=== PATIENT | female | born 1985 | race African-American/Black ===

== ENCOUNTER 2018-01-11 22:35 | Emergency (ER) | payer BC, SELFPAY ==
[2018-01-11 23:20] LABS: #Basophils 0.1 thou/uL (0.0-0.2); #Eosinphils 0.1 thou/uL (0.0-0.7); #Lymphocytes 3.7 thou/uL (1.20-3.40); #Monocytes 0.7 thou/uL (0.11-0.59); #Neutrophils 5.8 thou/uL (1.40-6.50); %Basophils 0.7 % (0.0-1.0); %Eosinophils 0.9 % (0.0-10.0); %Monocytes 6.5 % (0.0-10.0); %Neutrophils 55.9 % (42.0-75.0); Hemoglobin 12.7 g/dL (12.0-16.0); Mean Corpuscular HGB CONC 32.6 g/dL (32.0-36.0); Mean Corpuscular Hemoglobin 28.1 pg (27.0-31.0); Mean Corpuscular Volume 86.3 fl (81.0-99.0); Mean Platelet Volume 8.9 fL (7.4-10.4); Platelet Count 248 thou/uL (130-400); RBC Distribution Width 13.1 % (11.5-14.5); White Blood Cell (WBC) Count 10.3 thou/uL (4.8-10.8)
--- NOTE | 2018-01-11 23:22 | RAD ---
UPRIGHT PORTABLE CHEST ONE VIEW: 01/11/18 HISTORY: 32-year-old female with history of shortness of breath and congestive heart failure. There is marked cardiomegaly. There is some mild vascular congestion but no confluent pneumonia or ov ert edema or pleural effusion. IMPRESSION: Cardiomegaly but with only mild vascular congestion without evidence for pulmonary edema or pleural e ffusions. POS: H
[2018-01-11 23:42] LABS: ALT (SGPT) 11 U/L (8-55); AST (SGOT) 10 U/L (5-34); Albumin 3.5 g/dL (3.5-5.0); Alkaline Phosphatase 110 U/L (40-150); Anion Gap 13 mmol/L (10-20); BUN (Urea Nitrogen) 15 mg/dL (7.0-18.7); Bilirubin, Total 0.6 mg/dL (0.2-1.2); CK (CPK) 80 U/L (29-168); Calc. Creatinine Clearance 0 mL/min (70-130); Calcium 8.4 mg/dL (7.8-10.44); Carbon Dioxide 22 mmol/L (22-29); Chloride 105 mmol/L (98-107); Estimated GFR-MDRD Greater than 90; Glucose 277 mg/dL (70-105); Potassium 3.8 mmol/L (3.5-5.1); Protein, Total 7.5 g/dL (6.0-8.3); Sodium 136 mmol/L (136-145)
[2018-01-11] MEDS ORDERED: Furosemide 40 MG/4 ML VIAL ONE (23:43)
[2018-01-11 23:46] LABS: CKMB 0.9 ng/mL (0-6.6); Troponin I Less than 0.010 ng/mL (< 0.028)
--- NOTE | 2018-01-16 00:26 | EKG ---
Test Reason : FLUID OVERLOAD Blood Pressure : / mmHG Vent. Rate : 083 BPM Atrial Rate : 083 BPM P-R Int : 150 ms QRS Dur : 094 ms QT Int : 402 ms P-R-T Axes : 050 006 027 degrees QTc Int : 472 ms Normal sinus rhythm Minimal voltage criteria for LVH, may be normal variant Borderline ECG Confirmed by BRAD SPENCER ([id number]), visual effects editor RICKY HEAD ([id number]) on 01/16/2018 12:25:26 AM Referred By: Confirmed By:BRAD SPENCER
== END 2018-01-12 01:30 | disposition home or self-care (01) ==
LOC: ERS 22:35
DX: E87.70 Fluid overload, unspecified (principal); I11.0 Hypertensive heart disease with heart failure; I50.9 Heart failure, unspecified; F41.9 Anxiety disorder, unspecified
CPT/HCPCS: 71045; 80053; 82553; 83880; 84484; 85025; 93005; 96374; J1940

== ENCOUNTER 2018-06-15 16:56 | Emergency (ER) | payer MEDICAID, SELFPAY ==
[2018-06-15 17:30] LABS: #Basophils 0.1 thou/uL (0.0-0.2); #Eosinphils 0.1 thou/uL (0.0-0.7); #Lymphocytes 2.7 thou/uL (1.20-3.40); #Monocytes 0.7 thou/uL (0.11-0.59); #Neutrophils 5.2 thou/uL (1.40-6.50); %Basophils 0.6 % (0.0-1.0); %Lymphocytes 31.1 % (21.0-51.0); %Monocytes 8.3 % (0.0-10.0); Hemoglobin 11.8 g/dL (12.0-16.0); Mean Corpuscular HGB CONC 31.8 g/dL (32.0-36.0); Mean Corpuscular Hemoglobin 27.9 pg (27.0-31.0); Mean Corpuscular Volume 87.7 fL (78.0-98.0); Mean Platelet Volume 9.1 fL (7.4-10.4); Platelet Count 274 thou/uL (130-400); RBC Distribution Width 13.5 % (11.5-14.5); Red Blood Cell (RBC) Count 4.23 mill/uL (4.20-5.40); White Blood Cell (WBC) Count 8.7 thou/uL (4.8-10.8)
--- NOTE | 2018-06-15 17:42 | RAD ---
PORTABLE AP CHEST X-RAY 06/15/18 HISTORY: Sharp chest pain. COMPARISON: 01/11/18. FINDINGS: The cardiac silhouette is magnified by projection but does appear mildly enlarged and is stable from prior study. Pulmonary vasculature is within normal limits. Lungs are clear. There has been no interv al change when compared to the prior exam. IMPRESSION: 1. No acute cardiopulmonary process. 2. Cardiomegaly stable from prior exam. POS: JASON
[2018-06-15 17:54] LABS: ALT (SGPT) 13 U/L (8-55); AST (SGOT) 11 U/L (5-34); Albumin 3.4 g/dL (3.5-5.0); Alkaline Phosphatase 112 U/L (40-150); Anion Gap 13 mmol/L (10-20); BUN (Urea Nitrogen) 10 mg/dL (7.0-18.7); Bilirubin, Total 0.4 mg/dL (0.2-1.2); CK (CPK) 82 U/L (29-168); Calc. Creatinine Clearance 0 mL/min (70-130); Calcium 8.5 mg/dL (7.8-10.44); Carbon Dioxide 21 mmol/L (22-29); Chloride 105 mmol/L (98-107); Estimated GFR-MDRD Greater than 90; Globulin 3.9 g/dL (2.4-3.5); Glucose 252 mg/dL (70-105); Lipase 65 U/L (8-78); Potassium 4.2 mmol/L (3.5-5.1); Protein, Total 7.3 g/dL (6.0-8.3); Sodium 135 mmol/L (136-145)
[2018-06-15 17:58] LABS: Troponin I Less than 0.010 ng/mL (< 0.028)
--- NOTE | 2018-06-15 22:59 | ULT ---
RIGHT LOWER EXTREMITY VENOUS DOPPLER WITH SPECTRAL ANALYSIS AND COLOR FLOW EVALUATION: 06/15/18 HISTORY: Right lower extremity pain and edema. FINDINGS: Singer scale, color flow, doppler evaluation, and spectral analysis of the right lower extremity venous structures is performed with 2D imaging. The right lower extremity superficial femoral and popliteal veins as well as posterior tibial veins a re not seen on singer scale imaging related to depth of the veins in relation to the skin surface. This limits evaluation for nonocclusive DVT. However, there is normal flow and augmentation in these deep venous structures. There does appear to be normal lumen compressibility and flow within the right co mmon femoral and profunda femoral veins. IMPRESSION: Limited examination as described above. The venous structures are not visualized on singer scale imagin g related to depth of the venous structures from the skin surface. This limits evaluation for nonoccl usive DVT. However, no occlusive DVT is evident given flow within the visualized deep venous structur es of the right lower extremity. POS: LEONORA
[2018-06-15] MEDS ORDERED: Furosemide 40 MG/4 ML VIAL ONE (23:48)
--- NOTE | 2018-06-18 19:20 | EKG ---
Test Reason : Blood Pressure : / mmHG Vent. Rate : 076 BPM Atrial Rate : 076 BPM P-R Int : 170 ms QRS Dur : 094 ms QT Int : 402 ms P-R-T Axes : 039 004 027 degrees QTc Int : 452 ms Normal sinus rhythm Normal ECG Confirmed by CHARLIE SHARMA DO ([id number]), news copy editor RICKY HEAD ([id number]) on 06/18/2018 7:19:45 PM Referred By: Confirmed By:CHARLIE SHARMA DO
== END 2018-06-15 23:54 | disposition home or self-care (01) ==
LOC: ERS 16:56
DX: M79.604 Pain in right leg (principal); I11.0 Hypertensive heart disease with heart failure; I50.9 Heart failure, unspecified; E11.9 Type 2 diabetes mellitus without complications; Z79.899 Other long term (current) drug therapy; Z79.4 Long term (current) use of insulin
CPT/HCPCS: 36415; 71045; 80053; 82553; 83690; 83880; 84484; 85025; 93005; 96374; J1940